=== PATIENT | male | born 1955 | race Caucasian/White ===

== ENCOUNTER 2025-04-21 10:35 | Emergency (ER) | payer OTHER, SELFPAY ==
--- OUTSIDE RECORDS SUMMARY | 2025-04-19 04:00 | XMS_ITS | Continuity of Care Document ---
Author Organization [facility] Address [address] [place] [address] [place] [id number] Phone Care Team Providers Care Laborer [employer] Name Role Phone Muehl MPT THEODORETTarun Unavailable Unavailable Procedures Procedure Date Progress Note Therapeutic Activities Neuromuscular Re-Ed Therapeutic Exercise Manual Therapy Hot or Cold Pack Therapeutic Activities Neuromuscular Re-Ed Therapeutic Exercise Manual Therapy Hot or Cold Pack Neuromuscular Re-Ed Therapeutic Exercise Manual Therapy Hot or Cold Pack Doc neg elder mal no plan PT Evaluation Moderate Complexity Neuromuscular Re-Ed Therapeutic Exercise Hot or Cold Pack Therapeutic Activities Neuromuscular Re-Ed Therapeutic Exercise Manual Therapy Hot or Cold Pack Therapeutic Activities Neuromuscular Re-Ed Therapeutic Exercise Manual Therapy Hot or Cold Pack Therapeutic Activities Neuromuscular Re-Ed Therapeutic Exercise Manual Therapy Therapeutic Activities Neuromuscular Re-Ed Therapeutic Exercise Manual Therapy Hot or Cold Pack Therapeutic Activities Neuromuscular Re-Ed Manual Therapy Therapeutic Exercise Hot or Cold Pack Progress Note Therapeutic Activities Neuromuscular Re-Ed Therapeutic Exercise Manual Therapy Hot or Cold Pack Therapeutic Activities Neuromuscular Re-Ed Manual Therapy Therapeutic Exercise Therapeutic Activities Neuromuscular Re-Ed Therapeutic Exercise Manual Therapy Hot or Cold Pack Therapeutic Activities Neuromuscular Re-Ed Therapeutic Exercise Manual Therapy Hot or Cold Pack Progress Note Therapeutic Activities Neuromuscular Re-Ed Therapeutic Exercise Manual Therapy Hot or Cold Pack Therapeutic Activities Neuromuscular Re-Ed Therapeutic Exercise Manual Therapy Hot or Cold Pack Therapeutic Activities Neuromuscular Re-Ed Therapeutic Exercise Manual Therapy Hot or Cold Pack Therapeutic Activities Therapeutic Exercise Neuromuscular Re-Ed Hot or Cold Pack Manual Therapy SAND SLINGER Acute Therapeutic Activities Neuromuscular Re-Ed Therapeutic Exercise Manual Therapy Hot or Cold Pack Electrical Stimulation Waive Cancel or No Show - No Charge Therapeutic Activities Neuromuscular Re-Ed Therapeutic Exercise Manual Therapy Hot or Cold Pack Electrical Stimulation Therapeutic Activities Neuromuscular Re-Ed Therapeutic Exercise Manual Therapy Hot or Cold Pack Electrical Stimulation Therapeutic Activities Neuromuscular Re-Ed Therapeutic Exercise Manual Therapy Hot or Cold Pack Doc neg elder mal no plan PT Evaluation Moderate Complexity Neuromuscular Re-Ed Therapeutic Exercise Manual Therapy Progress Note Neuromuscular Re-Ed Therapeutic Activities Electrical Stimulation Hot or Cold Pack Therapeutic Exercise Neuromuscular Re-Ed Therapeutic Exercise Hot or Cold Pack Electrical Stimulation Neuromuscular Re-Ed Therapeutic Exercise Manual Therapy Hot or Cold Pack Electrical Stimulation Neuromuscular Re-Ed Manual Therapy Therapeutic Exercise Electrical Stimulation Hot or Cold Pack Therapeutic Activities Neuromuscular Re-Ed Therapeutic Exercise Manual Therapy Hot or Cold Pack Therapeutic Activities Neuromuscular Re-Ed Therapeutic Exercise Manual Therapy Progress Note Therapeutic Activities Neuromuscular Re-Ed Therapeutic Exercise Manual Therapy Hot or Cold Pack Therapeutic Activities Neuromuscular Re-Ed Therapeutic Exercise Manual Therapy Hot or Cold Pack Therapeutic Activities Therapeutic Exercise Neuromuscular Re-Ed Manual Therapy Hot or Cold Pack Therapeutic Activities Neuromuscular Re-Ed Therapeutic Exercise Hot or Cold Pack Manual Therapy Therapeutic Activities Therapeutic Exercise Neuromuscular Re-Ed Manual Therapy PT Evaluation Moderate Complexity Therapeutic Activities Therapeutic Exercise Neuromuscular Re-Ed Manual Therapy Advance Directives Directive Yes / No Effective Date File Name No Information Encounters Encounter Description Practice Location Reason(s) For Visit Diagnoses Date Provider Providers Copied on Encounter [address], [id number], tel:[phone] Dema No Information Sep-0 5- 5 Muehl Tarun. [address] [place] [address], [facility], . tel:[phone] Referring Provider: Booker Mishra Jr, [address] [address], [place], [address]. tel:[phone], [id number], tel:[phone] Dema No Information Sep-0 3-202 5 Muehl Tarun. [address] [place] [address], [facility], [place]. tel:[phone] Referring Provider: Booker Mishra Jr, [address] [address], [place], [address]. tel:[phone], [id number], tel:[phone] Dema No Information Mar-2 7-202 5 Muehl Tarun. [address] [place] [address], [facility] [address], [place], [facility], . tel:[phone] Referring Provider: Booker Mishra Jr [address] [facility] [address], [place], [address]. tel:[phone], [id number], [place] tel:[phone] Dema No Information 5 Muehl Tarun. [address] [place] [address], [address], [place], [address], [place]. tel:[phone] Referring Provider: Booker Mishra Jr, [address] [facility] [address], [place], [address]. tel:[phone] [address] [facility] [address], [place], [id number], [place] tel:[phone] Dema No Information 5 Muehl Tarun. [address] [place] [address], [address], [place], [address], [place]. tel:[phone] Referring Provider: Parkre Reyes, [address], [place], [address]. tel:[phone], [id number], [place] tel:[phone] Dema No Information 5 Muehl Tarun. [address] [place] [address], [address], [place], [address], [place]. tel:[phone] Referring Provider: Parker Reyes, [address], [place], [address]. tel:[phone], [id number], [place] tel:[phone] Dema No Information 5 Muehl Tarun. [address] [place] [address], [address], [place], [address], [place]. tel:[phone] Referring Provider: Parker Reyes, [address], [place], [address]. tel:[phone] [facility] [address] [address], [place], [place], [id number], [place] tel:[phone] Dema No Information 5 Muehl Tarun. [address] [facility], [address], [place], [address], [place]. tel:[phone] Referring Provider: Parker Reyes, [address], [place], [address]. tel:[phone] [facility] [address], [id number], [place] tel:[phone] Dema No Information 5 Muehl Tarun. [address] [place] [address], [address], [place], [address], [place]. tel:[phone] Referring Provider: Parker Reyes, [address] [place] [address], [place], [address]. tel:[phone] [facility] [address], [id number], [place] tel:[phone] Dema No Information 5 Muehl Tarun. [address] [place] [address], [address], [place], [address], [place]. tel:[phone] Referring Provider: Parker Reyes, [address], [place], [address]. tel:[phone] [facility] [address], [id number], [place] tel:[phone] Dema No Information 5 Bronwyn Suazo. . Referring Provider: Parker Reyes, [address], [place], [address]. tel:[phone] [facility] [address], [place], [place], [id number], [place] tel:[phone] Dema No Information 5 Alonzo Myke. . Referring Provider: Parker Reyes, [address], [place], [address]. tel:[phone] [facility]2[address] [facility], [place], [place], [id number], [place] tel:[phone] Dema No Information 5 Alonzo Myke. . Referring Provider: Parker Reyes, [address], [place], [address]. tel:[phone] [facility] [address] [facility], [place], [place], [id number], [place] tel:[phone] Dema No Information 5 Muehl Tarun. [address] [facility], [address], [place], [address], [place]. tel:[phone] Referring Provider: Parker Reyes, [address], [place], [address]. tel:[phone] [facility] [facility] [address] [place] [address], [id number], [place] tel:[phone] Dema No Information 5 Muehl Tarun. [address] [facility], [address], [place], [address], [place]. tel:[phone] Referring Provider: Parker Reyes, [address], [place], [address]. tel:[phone] [facility] [address] [facility] [address] [place] [address], [id number], [place] tel:[phone] Dema No Information 5 Muehl Tarun. [address] [facility], [address], [place], [address], [place]. tel:[phone] Referring Provider: Parker Reyes, [address], [place], [address]. tel:[phone] [facility], [id number], [place] tel:[phone] Dema No Information Saji-0 2-202 5 Muehl Tarun. [address] [facility], [address], [place], [address], [place]. tel:[phone] Referring Provider: Parker Reyes, [address], [place], [address]. tel:[phone] [address] [address], [place], [place], [id number], [place] tel:[phone] Dema No Information Yonny-3 0-202 5 Muehl Tarun. [address] [facility], [address], [place], [address], [place]. tel:[phone] Referring Provider: Parker Reyes, [address] [place] [address], [place], [address]. tel:[phone], [id number], [place] tel:[phone] Dema No Information Yonny-2 5-202 5 Cope Bret. . Referring Provider: Parker Reyes, [address] [place] [address], [place], [address]. tel:[phone], [id number], tel:[phone] Dema No Information Yonny-2 3-202 5 Muehl Tarun. [address] [facility], [address], [place], [address], [place]. tel:[phone] Referring Provider: Parker Reyes, [address], [place], [address]. tel:[phone], [id number], [place] tel:[phone] Dema No Information Yonny-2 0-202 5 Muehl Tarun. [address] [facility], [address], [place], [address], [place]. tel:[phone] Referring Provider: Parker eRyes, [address], [place], [address]. tel:[phone] [facility] [facility] [address] [place] [address], [id number], [place] tel:[phone] Dema No Information 5 Bolivar Mcneil. [address] [facility], [facility] [address], [place], [address], [place]. tel:[phone] Referring Provider: Parker Reyes, [address], [place], [address]. tel:[phone] [facility] [address], [id number], [place] tel:[phone] Dema No Information 5 Bolivar Mcneil. [address] [facility], [facility] [address], [place], [address], [place]. tel:[phone] Referring Provider: Parker Reyes, [address], [place], [address]. tel:[phone] [facility] [facility] [address] [place] [address], [id number], [place] tel:[phone] Dema No Information 0 Niederhoffer Piedad. . [facility]2[address] [facility] [address] [place] [address], [id number], [place] tel:[phone] Dema No Information 0 Niederhoffer Piedad. . [facility]2[address] [facility] [address], [place], [id number], [place] tel:[phone] Dema No Information 0 Niederhoffer Piedad. . [facility]2[address] [facility], [place], [place], [id number], [place] tel:[phone] Dema No Information 0 Niederhoffer Piedad. . [facility]2[address] [facility] [address], [place], [id number], tel:[phone] Dema No Information 0 Jewel Herbert. . [facility] [place] [address], [id number], tel:[phone] Dema No Information 3 9 Tenzin Ivy. [address] [facility], [address], [place], [place], [facility], . tel:[phone] [facility], [id number], tel:[phone] Dema No Information 9 Anuel Pedraza. . [facility], [id number], tel:[phone] Dema No Information 9 Chito Knott. . [facility], [id number], tel:[phone] Dema No Information 9 Chito Knott. . [facility], [id number], tel:[phone] Dema No Information 9 Chito Knott. . [facility] [address], [id number], tel:[phone] Dema No Information 9 Chito Knott. . [facility], [id number], tel:[phone] Dema No Information 0 9 Chito Knott. . Family History Family Member Type Diagnosis Age At Onset No Information Payers Payer name Insurance type Covered alliance party ID Authoriza silver(s) [employer] EPO WC SP WC [id number] Social History Type Description Quantity Date Captured Comments Sex Male Smoking Status No Information Chief Complaint And Reason For Visit No Information Reason For Referral Reason For Referral No Information Plan Of Treatment Date Type Action Status Appointment Peer, Lonard BOOKED Appointment Peer, Lonard BOOKED Appointment Peer, Lonard BOOKED Appointment Peer, Lonard BOOKED Appointment Peer, Lonard BOOKED Appointment Peer, Lonard BOOKED Appointment Peer, Lonard BOOKED Appointment Peer, Lonard BOOKED Appointment Peer, Lonard BOOKED History Of Present Illness Encounter Date Complaint History Of Prese nt Illness No Information Functional Status Date Functional Assessmen t No Information Instructions Date Instruction Additional Infor mation No Information Assessments Type Assessment Date No Information Patient Care Teams Name Effective Dates (start - stop) Status Members No Information
--- NOTE | ~2025-04-21 | XR_ITS ---
EXAMINATION: XR chest 2V, 04/21/2025 11:38 CDT HISTORY: lower chest pain COMPARISON: No comparisons available. Technique: 2 views obtained. Findings: The lungs are clear, no effusion. No pneumothorax. Heart is normal size. Mediastinal and hilar contours are within normal limits. Bony thorax no acute abnormality. Impression: No acute cardiopulmonary abnormality. Reviewed, dictated and finalized at location A. Impression: No acute cardiopulmonary abnormality.
--- OUTSIDE RECORDS SUMMARY | 2025-04-21 10:38 | XMS_ITS | Clinical Summary ---
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 Name Role Phone Unavailable Primary Care Provider Unavailabl e Social History Tobacco Use Types Packs/Day Years Used Date Smoking Tobacco: Never Assessed Sex and Gender Information Value Date Recorded Sex Assigned at Not on file Legal Sex Male 7:38 PM CDT Gender Identity Not on file Sexual Orientation Not on file Plan of Treatment Health Maintenance Due Date Last Done Comments Colorectal Cancer Screening Colonoscopy (10 Years) 1955 Hepatitis C 12/21/1973 DTaP, Tdap and Td Vaccines ( 1 - Tdap) 12/21/1974 Pneumococcal Vaccine: 50+ Ye ars (1 of 1 - PCV) 12/21/2005 Zoster Vaccines (1 of 2) 12/21/2005 COVID-19 Vaccine (1 - 2023-2 5 season) 2025 RSV Immunization or 60+ Years (1 - 1-dose 75+ series) 12/21/2030 Meningococcal B Vaccine Aged Out No l onger eligible based on patient's age to complete this topic Meningococcal Vaccine Aged Out No oz kenzie eligible based on patient's age to complete this topic RSV Immunizations Under 20 Months Aged Out No longer eligible based on patient's age to complete this topic
--- OUTSIDE RECORDS SUMMARY | 2025-04-21 10:38 | XMS_ITS | Encounter Summary ---
Author Organization [facility] Address [address] [place] [address] Care Team Providers Care Sports Team Marketing Intern Name Role Phone Unavailable Primary Care Provider Unavailabl e Encounter Details Date Type Department Care Team (Late st Contact Info) Description 02/24/[address] [facility] CONVERSION [address] [place] [address] , Generic Conversion, Social History Tobacco Use Types Packs/Day Years Used Date Smoking Tobacco: Never Assessed Sex and Gender Information Value Date Recorded Sex Assigned at Not on file Legal Sex Male 7:38 PM CDT Gender Identity Not on file Sexual Orientation Not on file documented as of this encounter Plan of Treatment Not on file documented as of this encounter Visit Diagnoses Not on filedocumented in this encounter
--- NOTE | 2025-04-21 10:42 | ECG_ITS ---
Test Date: 2025-04-21 10:48:39 Measurements Intervals Vance Rate: 67 P: 32 GA: 171 QRS: -41 QRSD: 100 T: 7 QT: 366 QTc: 387 Interpretive Statements SINUS RHYTHM LEFT AXIS DEVIATION [QRS AXIS < -30] No previous ECG available for comparison Electronically Signed On 04-21-2025 16:06:47 CDT by Efrain Brantley M.D.
[2025-04-21 10:46] VITALS: BP 129/70; PULSE 77; RESP 18; TEMP 36.8; O2SAT 100
[2025-04-21 11:09] LABS: Hematocrit 38.4 % (42.0-52.0); Hemoglobin 12.6 g/dL (14.0-18.0); Immature Granulocyte Percent A 0.2 % (0-0.5); Lymphocytes Absolute Auto 2.15 K/mm3 (0.9-3.2); Mean Corpuscular HGB Conc 32.8 g/dl (32-36); Mean Corpuscular Hemoglobin 28.5 pg (26-34); Mean Corpuscular Volume 86.9 fl (80-100); Nucleated Red Blood Cells Absolute Auto 0.000 K/mm3 (0.0-0.012); Nucleated Red Blood Cells Perc 0.0 % (0.0-0.2); Platelet Count Result 224 k/mm3 (150-375); Red Blood Count 4.42 M/mm3 (4.6-6.20); White Blood Count 5.4 K/mm3 (4.5-10.0)
[2025-04-21 11:17] VITALS: O2SAT 100
[2025-04-21 11:23] LABS: INR 0.9; Partial Thromboplastin Time 25.4 Seconds (22.3-36.8); Prothrombin Time 12.5 Seconds (11.1-14.7)
[2025-04-21 11:26] LABS: Alanine Aminotransferase 37 U/L (6-50); Albumin Level 4.7 g/dL (3.5-5.1); Alkaline Phosphatase 63 U/L (38-126); Anion Gap 10 mmol/L (4-12); Aspartate Amino Transferase 38 U/L (17-59); Bilirubin,Total 0.4 mg/dL (0.2-1.3); Blood Urea Nitrogen 21 mg/dL (9-20); Calcium 9.8 mg/dL (8.4-10.2); Carbon Dioxide 24 mmol/L (22-30); Chloride 102 mmol/L (98-107); Estimated CRCL calculation 72 ml/min; Estimated Glomerular Filt Rate > 60; Glucose 113 mg/dL (65-110); Lipase 233 U/L (23-300); Potassium 4.1 mmol/L (3.4-5.0); Sodium 136 mmol/L (137-145); Total Protein 7.4 g/dL (6.3-8.2)
--- NOTE | 2025-04-21 11:30 | ED.CHESTPAIN ---
HPI - Chest Pain General Chief Complaint: Chest Pain Stated Complaint: lower chest/upper abdomen pain Time Seen by Provider: 04/21/25 11:15 History of Present Illness HPI narrative: Patient is a 69-year-old male who presents to the ER with right-sided chest pain. He reports his chest pain started this morning after he carried a toolbag into [employer]. Patient reports the pain starts on the right side of his mid sternum and radiates down below his right armpit. He reports the pain is mostly subsided at the time of examination. Patient denies any recent fevers, shortness of breath, or lower extremity swelling. He reports he had left rotator cuff surgery approximately 6 weeks ago. Patient endorses a history of diabetes and hypertension. Related Data Allergies Allergy/AdvReac Type Severity Reaction Status Date / Time No Known Allergies Allergy Verified 04/21/25 10:45 Review of Systems Review of Systems: All systems reviewed & are unremarkable except as noted in HPI and below PMFSH Social History Social History Smoking status: Never smoker Alcohol intake: never Exam Narrative: GENERAL: Well appearing, well-nourished, non-toxic, in no acute distress. HEAD: Normocephalic, atraumatic. NECK: Supple. No adenopathy, no masses. RESPIRATORY: Airway patent, respirations nonlabored. Clear to auscultation bilaterally, no rales, rhonchi, wheezing. CARDIOVASCULAR: Regular rate and rhythm without murmurs, rubs, or gallops. Peripheral pulses 2+ and equal bilaterally. ABDOMINAL: Soft, nontender, nondistended, no hepatosplenomegaly. Normoactive BS. MUSCULOSKELETAL: Moves all extremities. Strength/ROM intact without gross deformities. L shoulder decreased mobility d/t surgical restrictions SKIN: Warm, dry, normal color. No rashes. L shoulder skin dry and intact NEURO: A&O X3. Speech clear. Cranial nerves II-XII intact. No ataxic movements. PSYCHIATRIC: Appropriate mood and affect. Normal interaction. Course Vital Signs Vital signs: Vital Signs Temperature 36.8 C 04/21/25 10:46 Pulse Rate 77 04/21/25 10:46 Respiratory Rate 18 04/21/25 10:46 Blood Pressure 129/70 04/21/25 10:46 Pulse Oximetry 100 04/21/25 10:46 Oxygen Delivery Room Air 04/21/25 10:46 Temperature 36.8 C 04/21/25 10:46 Pulse Rate 70 04/21/25 14:11 Respiratory Rate 16 04/21/25 14:11 Blood Pressure 117/71 04/21/25 14:11 Pulse Oximetry 99 04/21/25 14:11 Oxygen Delivery Room Air 04/21/25 11:17 MDM - Chest Pain MDM Narrative Medical decision making narrative: Patient is a 69-year-old male who presents to the ER with right-sided chest pain. He reports his chest pain started this morning after he carried a toolbag and into [employer]. Patient reports the pain starts on the right side of his mid sternum and radiates down below his right armpit. He reports the pain is mostly subsided at the time of examination. Patient denies any recent fevers, shortness of breath, or lower extremity swelling. He reports he had left rotator cuff surgery approximately 6 weeks ago. Patient endorses a history of diabetes and hypertension. Labs Ordered: CBC, CMP, lipase, PTT, INR, troponin Imaging Ordered: Chest x-ray Medications Ordered: None necessary, patient declined pain medicine Results: Patient's CBC indicates a red blood cell count of 4.42, hemoglobin of 12.6, hematocrit 38.4%. His coags are within normal limits. Patient's chemistry indicates a sodium of 136, BUN of 21, glucose of 113. His initial and 2nd troponins were both within normal limits. Patient's lipase was within normal limits. Patient's chest x-ray indicates no acute cardiopulmonary abnormalities. Diagnosis: Muscle strain, costochondritis Risks: HEART score: low risk HEART Score for Major Cardiac Events from [email or web address] on 04/21/2025 All calculations should be rechecked by clinician prior to use RESULT SUMMARY: 3 points Low Score (0-3 points) Risk of MACE of 0.9-1.7%. INPUTS: History ?> 0 = Slightly suspicious EKG ?> 0 = Normal Age ?> 2 = >=5 Risk factors ?> 1 = 1-2 risk factors Initial troponin ?> 0 = <Normal limit Patient Education/Shared MDM: Results of lab work and imaging shared with patient. He endorses improvement of symptoms since he has been in the ER, but reports he is more concerned with his heartburn, which he has been diagnosed with in the past. Patient strongly advised to maintain hydration status upon discharge and follow-up with his PCP as needed. He will be discharged home with a prescription for Pepcid, lidocaine patches, and muscle relaxants. Strict return precautions provided. Patient verbalized understanding and is in agreement with plan. Vital signs stable at time of discharge. All questions answered. Differential Diagnosis Differential diagnosis: Likely atypical chest pain, st elevation myocardial infarction, costochondritis and other (GERD, muscle strain) Lab Data Attestation: I reviewed the patient's lab results. 04/21/25 10:56 04/21/25 10:56 Labs: Lab Results 04/21/25 04/21/25 Range/Units 10:56 14:08 WBC 5.4 (4.5-10.0) K/mm3 RBC 4.42 L (4.6-6.20) M/mm3 Hgb 12.6 L (14.0-18.0) g/dL Hct 38.4 L (42.0-52.0) % MCV 86.9 (80-100) fl MCH 28.5 (26-34) pg MCHC 32.8 (32-36) g/dl RDW 14.8 H (11.5-14.5) % Plt Count 224 (150-375) k/mm3 MPV 9.1 (7.4-10.4) fl Immature Gran % (Auto) 0.2 (0-0.5) % Neut % (Auto) 41.9 L (45.5-73.1) % Lymph % (Auto) 39.9 (18.3-44.2) % Hancock % (Auto) 11.7 H (2.6-8.5) % Eos % (Auto) 5.6 H (0-4.4) % Baso % (Auto) 0.7 (0.2-1.2) % Lymph # (Auto) 2.15 (0.9-3.2) K/mm3 Hancock # (Auto) 0.6 (0.1-0.6) K/mm3 Eos # (Auto) 0.3 (0-0.3) K/mm3 Baso # (Auto) 0.0 (0.0-0.1) K/mm3 Abs Immat Gran (auto) 0.01 (0.00-0.031) K/mm3 Absolute Neuts (auto) 2.3 (1.3-6.7) K/mm3 Absolute Nucleated RBC 0.000 (0.0-0.012) K/mm3 Nucleated RBC % 0.0 (0.0-0.2) % PT 12.5 (11.1-14.7) Seconds INR 0.9 APTT 25.4 (22.3-36.8) Seconds Sodium 136 L (137-145) mmol/L Potassium 4.1 (3.4-5.0) mmol/L Chloride 102 (98-107) mmol/L Carbon Dioxide 24 (22-30) mmol/L Anion Gap 10 (4-12) mmol/L BUN 21 H (9-20) mg/dL Creatinine 0.94 (0.7-1.3) mg/dL Estim Creat Clear Calc 72 ml/min Estimated GFR > 60 (59 - ) Glucose 113 H (65-110) mg/dL Calcium 9.8 (8.4-10.2) mg/dL Total Bilirubin 0.4 (0.2-1.3) mg/dL AST 38 (17-59) U/L ALT 37 (6-50) U/L Alkaline Phosphatase 63 (38-126) U/L Troponin I < 0.012 < 0.012 (0.000-0.034) ng/mL Total Protein 7.4 (6.3-8.2) g/dL Albumin 4.7 (3.5-5.1) g/dL Lipase 233 (23-300) U/L Imaging Data Attestation: I personally reviewed and interpreted this imaging study as follows: Radiologist's impression: Impressions Chest X-Ray 04/21/25 11:55 Impression: No acute cardiopulmonary abnormality. Discharge Plan Discharge Clinical Impression: Atypical chest pain, Costalchondritis, GERD (gastroesophageal reflux disease), Muscle strain Patient Disposition: Home Condition: Stable Instructions: Antibiotic Form, Costochondritis (ED), GERD (Gastroesophageal Reflux Disease) (ED) Additional Instructions: Please return to the ER with any worsening symptoms. Follow-up with primary care provider as soon as possible. Take all medications as prescribed, including regularly scheduled medications. You may use Tylenol and or ibuprofen for pain control. Please take muscle relaxants and or use lidocaine patches as needed. You may take Pepcid in addition to your daily reflux medication. Patient Language: Georgian Prescriptions: New famotidine [Pepcid] 40 mg tablet 40 mg PO DAILY Qty: 30 0RF lidocaine 5 % adhesive patch,medicated 2 patch topical DAILY Qty: 30 0RF Rx Instructions: leave on most painful area for up to 12 hrs cyclobenzaprine 10 mg tablet 10 mg PO TID PRN (Reason: muscle spasm) Qty: 30 0RF Follow-up/Referrals: Spencer,Zeb Saucedo MD [Primary Care Provider, Unknown] Time of Disposition: 15:24
[2025-04-21 11:36] LABS: Troponin I < 0.012 ng/mL (0.000-0.034)
--- NOTE | 2025-04-21 13:52 | ECG_ITS ---
Test Date: 2025-04-21 13:57:05 Measurements Intervals Moffat Rate: 74 P: 52 NE: 157 QRS: -45 QRSD: 98 T: 22 QT: 363 QTc: 403 Interpretive Statements SINUS RHYTHM LEFT AXIS DEVIATION [QRS AXIS < -30] Compared to ECG 04/21/2025 10:48:39 No significant changes Electronically Signed On 04-21-2025 16:10:03 CDT by Efrain Brantley M.D.
[2025-04-21 14:11] VITALS: BP 117/71; PULSE 70; RESP 16; O2SAT 99
--- NOTE | 2025-04-21 14:13 | PC.NURSE ---
Patient denies chest pain at this time
[2025-04-21 14:51] LABS: Troponin I < 0.012 ng/mL (0.000-0.034)
== END 2025-04-21 15:30 | disposition home or self-care (01) ==
PROVIDERS: Emergency Medicine; Emergency Provider Registered Nurse; PCP Family Medicine
DX: M94.0 Chondrocostal junction syndrome [Tietze] (principal); K21.9 Gastro-esophageal reflux disease without esophagitis; S29.011A Strain of muscle and tendon of front wall of thorax, initial encounter; X50.0XXA Overexertion from strenuous movement or load, initial encounter
CPT/HCPCS: 36415; 71046; 80053; 83690; 84484; 85025; 85610; 85730; 93005; 99284